=== PATIENT | male | born 1975 | race Caucasian/White ===

== ENCOUNTER 2017-09-21 17:41 | Emergency (ER) | payer MEDICAID ==
[~2017-09-21] VITALS: Ht 172.7 cm; Wt 65.9 kg
[2017-09-21 17:58] VITALS: BP 144/91
== END 2017-09-21 21:30 | disposition left against medical advice (07) ==
LOC: EMS 17:52
DX: F22 Delusional disorders (principal); F16.90 Hallucinogen use, unspecified, uncomplicated; F17.210 Nicotine dependence, cigarettes, uncomplicated; Z53.21 Procedure and treatment not carried out due to patient leaving prior to being seen by health care provider

== ENCOUNTER 2017-09-21 22:48 | Inpatient (IN) | payer MEDICAID, OTHER ==
[~2017-09-21] VITALS: Ht 170.2 cm; Wt 88.6 kg
[2017-09-21 23:56] LABS: BASOPHILS # (AUTO) 0.02 K/uL (0.00-0.20); BASOPHILS % (AUTO) 0.4 % (0.0-2.0); EOSINOPHILS # (AUTO) 0.05 K/uL (0.00-0.70); EOSINOPHILS % (AUTO) 0.66 % (1.0-6.0); HEMATOCRIT 45.8 % (41-53); HEMOGLOBIN 15.2 g/dL (13.5-17.5); LYMPHOCYTES # (AUTO) 0.7 K/uL (1.0-4.8); LYMPHOCYTES % (AUTO) 9.3 % (22.0-44.0); MEAN CORPUSCULAR HEMOGLOBIN 32.5 pg (26.0-34.0); MEAN CORPUSCULAR HGB CONC 33.2 G/dL (31.0-37.0); MEAN CORPUSCULAR VOLUME 98 fL (80-100); MONOCYTES # (AUTO) 0.4 K/uL (0.1-1.0); MONOCYTES % (AUTO) 6.1 % (2.0-9.0); NEUTROPHILS # (AUTO) 5.8 K/uL (1.8-7.7); NEUTROPHILS % (AUTO) 83.6 % (40.0-70.0); PLATELET COUNT (AUTO) 132 K/uL (150-450); RED BLOOD CELL COUNT(AUTO) 4.67 MIL/uL (4.50-5.90); RED CELL DISTRIBUTION WIDTH 13.1 % (11.5-14.5)
[2017-09-22 00:01] LABS: ANION GAP 10 mmol/L (8-16); CALCIUM, TOTAL 9.1 mg/dL (8.8-10.5); CARBON DIOXIDE 29 mmol/L (22-29); CHLORIDE 99 mmol/L (98-107); CREATININE 1.07 mg/dL (0.60-1.30); GLOMERULAR FILTR. RATE CALC > 60 mL/min (>60); POTASSIUM 3.9 mmol/L (3.5-5.1); SODIUM SERUM 138 mmol/L (136-145); UREA NITROGEN, BLOOD 14 mg/dL (7-18)
[2017-09-22 00:07] LABS: ALANINE AMINOTRANSFERASE 31 U/L (12-78); ASPARTATE AMINOTRANSFERASE 21 U/L (15-37); BILIRUBIN,TOTAL 0.3 mg/dL (0.1-1.0); TOTAL PROTEIN, SERUM 8.1 g/dL (6.4-8.2)
[2017-09-22] MEDS ORDERED: ZOLPIDEM TARTRATE 10 MG TABLET PO PRN (01:00)
[2017-09-22] MEDS ORDERED: LORazepam 2 MG TABLET PO PRN (01:00)
[2017-09-22] MEDS ORDERED: OLANZapine 5 MG RAPDIS TABLET PO PRN ×2 (01:00→14:30)
[2017-09-22 01:59] LABS: CHOL/HDL RATIO 3.4 (4.2-7.3); THYROID STIMULATING HORMONE 0.91 uIU/mL (0.36-3.74)
[2017-09-22 06:45] LABS: APPEARANCE,URINE CLEAR (CLEAR); GLUCOSE, URINE (UA) NEGATIVE (NEGATIVE); KETONES,URINE NEGATIVE (NEGATIVE); LEUKOCYTE ESTERASE ,URINE NEGATIVE (NEGATIVE); OCCULT BLOOD,URINE NEGATIVE (NEGATIVE); PH,URINE 6.5 (5.0-8.0); PROTEIN,URINE NEGATIVE (NEGATIVE)
[2017-09-22 06:46] LABS: ADD UA MICROSCOPIC NO
[2017-09-22] MEDS ORDERED: DiphenhydrAMINE HCL 50 MG/ML VIAL ONE (11:39)
[2017-09-22] MEDS ORDERED: HALOPERIDOL LACTATE 5 MG/ML VIAL ONE (11:39)
[2017-09-22] MEDS ORDERED: LORazepam 2 MG/ML VIAL ONE (11:39)
[2017-09-22] MEDS ORDERED: HALOPERIDOL LACTATE 5 MG/ML VIAL IM ONE (11:45)
[2017-09-22] MEDS ORDERED: DiphenhydrAMINE HCL 50 MG/ML VIAL IM ONE (11:45)
[2017-09-22] MEDS ORDERED: LORazepam 2 MG/ML VIAL IM ONE (11:45)
[2017-09-22] MEDS ORDERED: HydrOXYzine PAMOATE 50 MG CAPSULE PO PRN (14:30)
[2017-09-22] MEDS ORDERED: ACETAMINOPHEN 325 MG TABLET PO PRN (14:30)
[2017-09-22] MEDS ORDERED: MAGNESIUM HYDROXIDE SUSPENSION 30 ML UDCUP PO PRN (14:30)
[2017-09-22] MEDS ORDERED: GuaiFENesin/D-METHORPHAN [SUGAR-FREE] 200-20MG/10 ML SYRUP UDCUP PO PRN (14:30)
[2017-09-22] MEDS ORDERED: LOPERAMIDE HCL 2 MG CAPSULE PO PRN (14:30)
[2017-09-22] MEDS ORDERED: TUBERCULIN, PURIFIED PROTEIN DERIVATIVE 5 TU/0.1 ML SYG ID ONE (14:30)
[2017-09-22] MEDS ORDERED: PROMETHAZINE HCL 25 MG TABLET PO PRN (14:30)
[2017-09-22] MEDS ORDERED: MAG HYDROX/AL HYDROX/SIMETH ES 30 ML SUSPENSION UDCUP PO PRN (14:30)
[2017-09-22 15:18] VITALS: BP 128/56
[2017-09-22 16:00] VITALS: BP 114/70
[2017-09-22] MEDS: THIAMINE HCL 100 MG TABLET PO SCH (16:57)
[2017-09-22] MEDS ORDERED: OLANZapine 5 MG RAPDIS TABLET PO SCH (21:00)
[2017-09-23 06:49] VITALS: BP 107/65
[2017-09-23] MEDS: FOLIC ACID 1 MG TABLET PO SCH (08:51)
[2017-09-23] MEDS: THIAMINE HCL 100 MG TABLET PO SCH ×2 (08:51→16:43)
[2017-09-23] MEDS: NALTREXONE HCL 50 MG TABLET PO SCH (08:51)
[2017-09-23] MEDS: MULTIVITAMINS WITH MINERALS, THERAPEUTIC TABLET PO SCH (08:51)
[2017-09-23 10:21] VITALS: BP 107/69
[2017-09-23 16:43] VITALS: BP 105/65
[2017-09-23] MEDS ORDERED: OLAN10TA22 PO (17:58)
[2017-09-23] MEDS ORDERED: NALT50TA PO (17:58)
[2017-09-23] MEDS ORDERED: OLANZapine 10 MG RAPDIS TABLET PO SCH (21:00)
[2017-09-24 02:33] VITALS: BP 100/63
[2017-09-24 08:00] VITALS: BP 106/67
[2017-09-24] MEDS ORDERED: OLAN10TA6 PO (08:56)
[2017-09-24] MEDS ORDERED: NALT50TA6 PO (08:56)
[2017-09-24] MEDS: NALTREXONE HCL 50 MG TABLET PO SCH (09:01)
[2017-09-24] MEDS: FOLIC ACID 1 MG TABLET PO SCH (09:01)
[2017-09-24] MEDS: THIAMINE HCL 100 MG TABLET PO SCH (09:01)
[2017-09-24] MEDS: MULTIVITAMINS WITH MINERALS, THERAPEUTIC TABLET PO SCH (09:01)
[2017-09-25 06:06] LABS: HEPATITIS Bs ANTIGEN SCREEN P Negative (Negative); HEPATITIS C AB SCREEN >11.0 s/co ratio (0.0-0.9)
== END 2017-09-24 13:20 | disposition home or self-care (01) | DRG 750 ==
LOC: EMS 22:49 → B2S 09-22 11:34
PROVIDERS: ADMIT Psychiatry & Neurology Psychiatry; ATTEND Psychiatry & Neurology Psychiatry
DX: F20.0 Paranoid schizophrenia (principal); D69.6 Thrombocytopenia, unspecified; R45.851 Suicidal ideations; F10.10 Alcohol abuse, uncomplicated; Z71.41 Alcohol abuse counseling and surveillance of alcoholic; F15.10 Other stimulant abuse, uncomplicated; Z71.51 Drug abuse counseling and surveillance of drug abuser; F16.10 Hallucinogen abuse, uncomplicated; Z71.6 Tobacco abuse counseling; F17.210 Nicotine dependence, cigarettes, uncomplicated; J44.9 Chronic obstructive pulmonary disease, unspecified; Z81.8 Family history of other mental and behavioral disorders; R73.9 Hyperglycemia, unspecified; R03.0 Elevated blood-pressure reading, without diagnosis of hypertension
CPT/HCPCS: 80074; 82306; 83036; 84443; 85049; 96372; 99285; 99406; G0480; J1200; J1630; J2060

== ENCOUNTER 2018-08-17 21:31 | Emergency (ER) | payer MEDICAID, OTHER ==
[~2018-08-17] VITALS: Ht 172.7 cm; Wt 77.3 kg
[~2018-08-17 21:31] MED LIST: NALT50TA PO; NALT50TA6 PO; OLAN10TA22 PO; OLAN10TA6 PO
[2018-08-17 21:50] VITALS: BP 158/96
[2018-08-17] MEDS: IBUPROFEN 600 MG TABLET PO ONE (22:20)
[2018-08-17] MEDS: LIDOCAINE 5% TRANSDERMAL PATCH TD ONE (22:20)
[2018-08-17] MEDS: METHOCARBAMOL 500 MG TABLET PO ONE (22:20)
== END 2018-08-17 22:38 | disposition home or self-care (01) ==
LOC: EMS 21:32
DX: M54.5 Low back pain (principal); R03.0 Elevated blood-pressure reading, without diagnosis of hypertension; F17.210 Nicotine dependence, cigarettes, uncomplicated; X50.0XXA Overexertion from strenuous movement or load, initial encounter; Y93.89 Activity, other specified; Y92.89 Other specified places as the place of occurrence of the external cause; Y99.8 Other external cause status

== ENCOUNTER 2019-05-04 22:16 | Emergency (ER) | payer OTHER | END 2019-05-04 22:45 | disposition left against medical advice (07) | LOC: EMS 22:17 | DX: Z00.00 Encounter for general adult medical examination without abnormal findings (principal); Z53.21 Procedure and treatment not carried out due to patient leaving prior to being seen by health care provider ==

== ENCOUNTER 2020-02-27 14:34 | Emergency (ER) | payer OTHER ==
[~2020-02-27] VITALS: Ht 175.3 cm; Wt 81.8 kg
[2020-02-27 15:23] VITALS: BP 131/81
[2020-02-27 15:31] LABS: BASOPHILS % (AUTO) 0.4 % (0.0-2.0); EOSINOPHILS % (AUTO) 2.7 % (1.0-6.0); HEMATOCRIT 40.1 % (41-53); LYMPHOCYTES % (AUTO) 22.7 % (22.0-44.0); MEAN CORPUSCULAR HEMOGLOBIN 31.2 pg (26.0-34.0); MEAN CORPUSCULAR HGB CONC 32.5 G/dL (31.0-37.0); MEAN CORPUSCULAR VOLUME 96 fL (80-100); MONOCYTES # (AUTO) 0.7 K/uL (0.1-1.0); MONOCYTES % (AUTO) 14.7 % (2.0-9.0); NEUTROPHILS # (AUTO) 2.7 K/uL (1.8-7.7); NEUTROPHILS % (AUTO) 59.5 % (40.0-70.0); PLATELET COUNT (AUTO) 130 K/uL (150-450); RED BLOOD CELL COUNT(AUTO) 4.17 MIL/uL (4.50-5.90); RED CELL DISTRIBUTION WIDTH 13.7 % (11.5-14.5)
[2020-02-27 15:41] LABS: ANION GAP 8 mmol/L (8-16); CALCIUM, TOTAL 8.1 mg/dL (8.8-10.5); CARBON DIOXIDE 25 mmol/L (22-29); CHLORIDE 106 mmol/L (98-107); GLOMERULAR FILTR. RATE CALC > 60 mL/min (>60); GLUCOSE,RANDOM 101 mg/dL (70-110); POTASSIUM 3.5 mmol/L (3.5-5.1); SODIUM SERUM 139 mmol/L (136-145); UREA NITROGEN, BLOOD 25 mg/dL (7-18)
[2020-02-27 16:05] LABS: ALANINE AMINOTRANSFERASE 37 U/L (12-78); ALBUMIN 3.7 g/dL (3.4-5.0); ALKALINE PHOSPHATASE 63 U/L (46-116); ASPARTATE AMINOTRANSFERASE 39 U/L (15-37); BILIRUBIN,TOTAL 0.8 mg/dL (0.1-1.0); CREATINE KINASE, TOTAL ONLY 555 U/L (39-308); TOTAL PROTEIN, SERUM 7.1 g/dL (6.4-8.2)
== END 2020-02-27 16:00 | disposition left against medical advice (07) ==
LOC: EMS 14:34
DX: T50.7X1A Poisoning by analeptics and opioid receptor antagonists, accidental (unintentional), initial encounter (principal); F17.210 Nicotine dependence, cigarettes, uncomplicated; Y92.89 Other specified places as the place of occurrence of the external cause
CPT/HCPCS: 80053; 82550; 84484; 85025; 93005; 99284; G0480

== ENCOUNTER 2020-12-16 17:35 | Emergency (ER) | payer OTHER ==
[~2020-12-16] VITALS: Ht 167.6 cm; Wt 73.2 kg
[2020-12-16] MEDS ORDERED: SODIUM CHLORIDE 0.9% 1,000 ML IV ONE (17:45)
[2020-12-16 18:41] LABS: COVID AG,FIA SOURCE NASAL SWAB
[2020-12-16 18:57] LABS: BASOPHILS % (AUTO) 0.2 % (0.0-2.0); EOSINOPHILS % (AUTO) 1.1 % (1.0-6.0); HEMATOCRIT 42.2 % (41-53); HEMOGLOBIN 14.1 g/dL (13.5-17.5); LYMPHOCYTES # (AUTO) 0.6 K/uL (1.0-4.8); LYMPHOCYTES % (AUTO) 13.9 % (22.0-44.0); MEAN CORPUSCULAR HGB CONC 33.3 G/dL (31.0-37.0); MEAN CORPUSCULAR VOLUME 96 fL (80-100); MONOCYTES # (AUTO) 0.3 K/uL (0.1-1.0); MONOCYTES % (AUTO) 6.4 % (2.0-9.0); NEUTROPHILS # (AUTO) 3.2 K/uL (1.8-7.7); NEUTROPHILS % (AUTO) 78.4 % (40.0-70.0); PLATELET COUNT (AUTO) 139 K/uL (150-450); RED CELL DISTRIBUTION WIDTH 14.4 % (11.5-14.5)
[2020-12-16 19:03] LABS: ANION GAP 18 mmol/L (8-16); CALCIUM, TOTAL 8.8 mg/dL (8.8-10.5); CARBON DIOXIDE 21 mmol/L (22-29); CHLORIDE 105 mmol/L (98-107); CREATININE 1.56 mg/dL (0.60-1.30); GLOMERULAR FILTR. RATE CALC 48 mL/min (>60); GLUCOSE,RANDOM 132 mg/dL (70-110); POTASSIUM 3.4 mmol/L (3.5-5.1); SODIUM SERUM 144 mmol/L (136-145); UREA NITROGEN, BLOOD 23 mg/dL (7-18)
[2020-12-16 19:06] VITALS: BP 114/61
[2020-12-16 19:29] LABS: ALANINE AMINOTRANSFERASE 36 U/L (12-78); ALBUMIN 3.9 g/dL (3.4-5.0); ALKALINE PHOSPHATASE 70 U/L (46-116); ASPARTATE AMINOTRANSFERASE 30 U/L (15-37); BILIRUBIN,TOTAL 0.3 mg/dL (0.1-1.0); CREATINE KINASE, TOTAL ONLY 164 U/L (39-308); LIPASE 138 U/L (73-393); TOTAL PROTEIN, SERUM 7.9 g/dL (6.4-8.2)
[2020-12-16 19:41] LABS: LACTIC ACID 12.1 mmol/L (0.4-2.0)
== END 2020-12-16 19:36 | disposition home or self-care (01) ==
LOC: EMS 17:35
DX: N17.9 Acute kidney failure, unspecified (principal); E87.6 Hypokalemia; E86.0 Dehydration; R41.82 Altered mental status, unspecified; F15.10 Other stimulant abuse, uncomplicated; F17.210 Nicotine dependence, cigarettes, uncomplicated; Z20.822 Contact with and (suspected) exposure to COVID-19
CPT/HCPCS: 36415; 80053; 82550; 83605; 83690; 84484; 85025; 87426; 93005; 96360; 99291; G0480

== ENCOUNTER 2020-12-30 16:38 | Emergency (ER) | payer OTHER | END 2020-12-30 17:36 | disposition left against medical advice (07) | LOC: EMS 16:38 | DX: F15.10 Other stimulant abuse, uncomplicated (principal); F17.210 Nicotine dependence, cigarettes, uncomplicated; Z59.0 Homelessness | CPT/HCPCS: 99283 ==

== ENCOUNTER 2021-01-26 21:57 | Emergency (ER) | payer OTHER ==
[~2021-01-26] VITALS: Ht 172.7 cm; Wt 70.5 kg
[2021-01-26] MEDS ORDERED: PERTUSS(ACELL),DIPH,TET VAC/PF 0.5 ML SYRINGE IM. ONE (22:45)
[2021-01-26] MEDS ORDERED: LIDOCAINE 1% 10 ML VIAL SQ ONE (22:45)
[2021-01-27 00:13] VITALS: BP 121/66
== END 2021-01-27 00:17 | disposition home or self-care (01) ==
LOC: EMS 21:59
DX: S61.212A Laceration without foreign body of right middle finger without damage to nail, initial encounter (principal); W45.8XXA Other foreign body or object entering through skin, initial encounter; Y93.89 Activity, other specified; Y92.89 Other specified places as the place of occurrence of the external cause; Y99.8 Other external cause status
CPT/HCPCS: 12004; 73140; 90471; 90715; 99283; J3490

== ENCOUNTER 2021-02-11 23:34 | Emergency (ER) | payer OTHER ==
[~2021-02-11] VITALS: Ht 172.7 cm; Wt 78.0 kg
[2021-02-11 23:52] LABS: GLUCOSE,POINT OF CARE 126 MG/DL (70-110)
[2021-02-12 00:10] LABS: BASOPHILS % (AUTO) 0.6 % (0.0-2.0); EOSINOPHILS % (AUTO) 2.6 % (1.0-6.0); LYMPHOCYTES # (AUTO) 0.8 K/uL (1.0-4.8); LYMPHOCYTES % (AUTO) 18.7 % (22.0-44.0); MEAN CORPUSCULAR HEMOGLOBIN 31.6 pg (26.0-34.0); MEAN CORPUSCULAR HGB CONC 33.4 G/dL (31.0-37.0); MEAN CORPUSCULAR VOLUME 95 fL (80-100); MONOCYTES # (AUTO) 0.4 K/uL (0.1-1.0); MONOCYTES % (AUTO) 9.6 % (2.0-9.0); NEUTROPHILS % (AUTO) 68.5 % (40.0-70.0); PLATELET COUNT (AUTO) 136 K/uL (150-450); RED BLOOD CELL COUNT(AUTO) 4.43 MIL/uL (4.50-5.90); RED CELL DISTRIBUTION WIDTH 13.6 % (11.5-14.5)
[2021-02-12 00:13] VITALS: BP 132/76
[2021-02-12 00:26] LABS: ANION GAP 11 mmol/L (8-16); CALCIUM, TOTAL 8.3 mg/dL (8.8-10.5); CARBON DIOXIDE 26 mmol/L (22-29); CHLORIDE 103 mmol/L (98-107); CREATININE 0.96 mg/dL (0.60-1.30); GLOMERULAR FILTR. RATE CALC > 60 mL/min (>60); GLUCOSE,RANDOM 143 mg/dL (70-110); POTASSIUM 3.3 mmol/L (3.5-5.1); SODIUM SERUM 140 mmol/L (136-145); UREA NITROGEN, BLOOD 29 mg/dL (7-18)
[2021-02-12 00:28] LABS: ALANINE AMINOTRANSFERASE 38 U/L (12-78); ALBUMIN 3.9 g/dL (3.4-5.0); ALKALINE PHOSPHATASE 66 U/L (46-116); ASPARTATE AMINOTRANSFERASE 26 U/L (15-37); BILIRUBIN,TOTAL 0.3 mg/dL (0.1-1.0); TOTAL PROTEIN, SERUM 7.2 g/dL (6.4-8.2)
== END 2021-02-12 00:17 | disposition left against medical advice (07) ==
LOC: EMS 23:36
DX: R41.82 Altered mental status, unspecified (principal); F19.10 Other psychoactive substance abuse, uncomplicated; F17.210 Nicotine dependence, cigarettes, uncomplicated
CPT/HCPCS: 80053; 82962; 85025; 99284; G0480

== ENCOUNTER 2022-03-17 07:43 | Emergency (ER) | payer OTHER ==
[~2022-03-17] VITALS: Ht 170.2 cm; Wt 79.1 kg
[~2022-03-17 07:43] MED LIST changes: +OLAN10TA26 PO; -OLAN10TA6 PO
[2022-03-17 07:48] VITALS: BP 133/82
[2022-03-17] MEDS: ACETAMINOPHEN 500 MG TABLET PO ONE ×2 (08:07→08:19)
== END 2022-03-17 08:48 | disposition home or self-care (01) ==
LOC: EMS 07:43
DX: S80.02XA Contusion of left knee, initial encounter (principal); S80.01XA Contusion of right knee, initial encounter; F17.210 Nicotine dependence, cigarettes, uncomplicated; Z98.890 Other specified postprocedural states; W19.XXXA Unspecified fall, initial encounter; Y93.89 Activity, other specified; Y92.89 Other specified places as the place of occurrence of the external cause; Y99.8 Other external cause status
CPT/HCPCS: 99282; Z7502; Z7610

== ENCOUNTER 2023-02-25 11:04 | Emergency (ER) | payer OTHER ==
[~2023-02-25 11:04] MED LIST changes: +CEPH-558 PO; +DOXY-354 PO; -NALT50TA PO; -NALT50TA6 PO; -OLAN10TA22 PO; -OLAN10TA26 PO
== END 2023-02-25 12:00 | disposition left against medical advice (07) ==
LOC: EMS 11:55
DX: Z53.21 Procedure and treatment not carried out due to patient leaving prior to being seen by health care provider (principal)

== ENCOUNTER 2023-03-02 10:48 | Emergency (ER) | payer OTHER ==
[~2023-03-02] VITALS: Ht 170.2 cm; Wt 65.9 kg
[2023-03-02 13:37] VITALS: BP 100/60
== END 2023-03-02 13:57 | disposition home or self-care (01) ==
LOC: EMS 10:49
DX: S82.831A Other fracture of upper and lower end of right fibula, initial encounter for closed fracture (principal); F17.210 Nicotine dependence, cigarettes, uncomplicated; F12.90 Cannabis use, unspecified, uncomplicated; F15.90 Other stimulant use, unspecified, uncomplicated; Y93.89 Activity, other specified; Y92.89 Other specified places as the place of occurrence of the external cause; Y99.8 Other external cause status
CPT/HCPCS: 99284; 73590-TC; 73610-TC; Z7502

== ENCOUNTER 2023-04-12 14:11 | Emergency (ER) | payer OTHER ==
[~2023-04-12] VITALS: Ht 205.7 cm; Wt 79.5 kg
[2023-04-12 14:18] VITALS: BP 134/76; PULSE 105; RESP 18; TEMP 98.6
[2023-04-12] MEDS ORDERED: PERTUSS(ACELL),DIPH,TET VAC/PF 0.5 ML SYRINGE IM. ONE (18:15)
[2023-04-12] MEDS ORDERED: LIDOCAINE 1% 10 ML VIAL SQ ONE (19:00)
[2023-04-12] MEDS ORDERED: AMOX1TAB16 PO (19:26)
[2023-04-12] MEDS ORDERED: AMOX TR/POT CLAV 875 MG/125 MG TABLET PO ONE (19:30)
[2023-04-12] MEDS ORDERED: BACITRACIN 28 GM OINTMENT TP ONE (19:45)
== END 2023-04-12 19:57 | disposition home or self-care (01) ==
LOC: EMS 14:23
DX: S51.052A Open bite, left elbow, initial encounter (principal); S71.152A Open bite, left thigh, initial encounter; F17.210 Nicotine dependence, cigarettes, uncomplicated; F12.90 Cannabis use, unspecified, uncomplicated; F15.90 Other stimulant use, unspecified, uncomplicated; Z98.890 Other specified postprocedural states; W54.0XXA Bitten by dog, initial encounter; Y93.89 Activity, other specified; Y92.89 Other specified places as the place of occurrence of the external cause; Y99.8 Other external cause status
CPT/HCPCS: 99284; 12042; 73080; 90715; 90471; J3490

== ENCOUNTER 2023-07-17 01:01 | Emergency (ER) | payer OTHER ==
[~2023-07-17] VITALS: Ht 172.7 cm; Wt 77.3 kg
[~2023-07-17 01:01] MED LIST changes: +AMOX1TAB16 PO; -CEPH-558 PO; -DOXY-354 PO
[2023-07-17 02:04] VITALS: PULSE 75
[2023-07-17] MEDS ORDERED: TraMADol HCL 50 MG TABLET PO ONE (03:00)
[2023-07-17] MEDS ORDERED: ACETAMINOPHEN 500 MG TABLET PO ONE (03:00)
[2023-07-17] MEDS ORDERED: KETOROLAC TROMETHAMINE 60 MG/2 ML VIAL IM ONE (03:00)
[2023-07-17] MEDS ORDERED: IBUP-1554 PO (03:31)
[2023-07-17] MEDS ORDERED: TRAM-559 PO (03:31)
[2023-07-17 04:29] VITALS: BP 137/71; RESP 16; TEMP 97.2
== END 2023-07-17 04:30 | disposition home or self-care (01) ==
LOC: EMS 01:04
DX: S39.012A Strain of muscle, fascia and tendon of lower back, initial encounter (principal); F17.210 Nicotine dependence, cigarettes, uncomplicated; F12.90 Cannabis use, unspecified, uncomplicated; F15.90 Other stimulant use, unspecified, uncomplicated; Z98.890 Other specified postprocedural states; Z59.00 Homelessness unspecified; X58.XXXA Exposure to other specified factors, initial encounter; Y93.89 Activity, other specified; Y92.89 Other specified places as the place of occurrence of the external cause; Y99.8 Other external cause status
CPT/HCPCS: 99283; 96372; J1885

== ENCOUNTER 2023-07-19 13:55 | Emergency (ER) | payer OTHER ==
[~2023-07-19] VITALS: Ht 175.3 cm; Wt 72.7 kg
[~2023-07-19 13:55] MED LIST changes: +IBUP-1554 PO; +TRAM-559 PO
[2023-07-19 14:29] VITALS: TEMP 98.8
[2023-07-19] MEDS ORDERED: KETOROLAC TROMETHAMINE 60 MG/2 ML VIAL IM ONE (15:00)
[2023-07-19] MEDS ORDERED: CYCLOBENZAPRINE HCL 10 MG TABLET PO ONE (15:00)
[2023-07-19] MEDS ORDERED: ACETAMINOPHEN 500 MG TABLET PO ONE (15:00)
[2023-07-19 15:45] VITALS: BP 124/81; PULSE 88; RESP 18
[2023-07-19] MEDS ORDERED: IBUP-1554 PO (15:50)
[2023-07-19] MEDS ORDERED: ACET-66 PO (15:50)
== END 2023-07-19 16:12 | disposition home or self-care (01) ==
LOC: MERGE 14:27 → EMS 14:27
DX: S39.012A Strain of muscle, fascia and tendon of lower back, initial encounter (principal); S70.02XA Contusion of left hip, initial encounter; S70.12XA Contusion of left thigh, initial encounter; F17.210 Nicotine dependence, cigarettes, uncomplicated; F15.90 Other stimulant use, unspecified, uncomplicated; X58.XXXA Exposure to other specified factors, initial encounter; Y93.89 Activity, other specified; Y92.89 Other specified places as the place of occurrence of the external cause; Y99.8 Other external cause status
CPT/HCPCS: 99283; 72170; 96372; J1885

== ENCOUNTER 2023-09-20 15:47 | Emergency (ER) | payer OTHER ==
[~2023-09-20] VITALS: Ht 170.2 cm; Wt 70.0 kg
[~2023-09-20 15:47] MED LIST changes: +ACET-66 PO
[2023-09-20 16:35] LABS: BASOPHILS % (AUTO) 0.5 % (0.0-2.0); EOSINOPHILS % (AUTO) 1.9 % (1.0-6.0); HEMATOCRIT 38.1 % (41-53); HEMOGLOBIN 12.9 g/dL (13.5-17.5); LYMPHOCYTES # (AUTO) 0.7 K/uL (1.0-4.8); LYMPHOCYTES % (AUTO) 15.5 % (22.0-44.0); MEAN CORPUSCULAR HEMOGLOBIN 32.3 pg (26.0-34.0); MEAN CORPUSCULAR HGB CONC 33.9 G/dL (31.0-37.0); MEAN CORPUSCULAR VOLUME 96 fL (80-100); MONOCYTES # (AUTO) 0.4 K/uL (0.1-1.0); MONOCYTES % (AUTO) 9.7 % (2.0-9.0); NEUTROPHILS # (AUTO) 3.4 K/uL (1.8-7.7); NEUTROPHILS % (AUTO) 72.4 % (40.0-70.0); PLATELET COUNT (AUTO) 177 K/uL (150-450); RED BLOOD CELL COUNT(AUTO) 3.99 MIL/uL (4.50-5.90); RED CELL DISTRIBUTION WIDTH 14.1 % (11.5-14.5); WHITE BLOOD COUNT (AUTO) 4.7 K/uL (4.5-11.0)
[2023-09-20 16:45] LABS: ANION GAP 7 mmol/L (8-16); CALCIUM, TOTAL 7.7 mg/dL (8.8-10.5); CARBON DIOXIDE 27 mmol/L (22-29); CHLORIDE 104 mmol/L (98-107); CREATININE 0.67 mg/dL (0.60-1.30); GLOMERULAR FILTR. RATE CALC > 60 mL/min (>60); GLUCOSE,RANDOM 123 mg/dL (70-110); POTASSIUM 3.8 mmol/L (3.5-5.1); SODIUM SERUM 138 mmol/L (136-145); UREA NITROGEN, BLOOD 19 mg/dL (7-18)
[2023-09-20 16:49] LABS: INR 1.1 (0.9-1.1); PROTHROMBIN TIME 11.1 SEC (9.4-11.6)
[2023-09-20 16:51] LABS: ALANINE AMINOTRANSFERASE 43 U/L (12-78); ALBUMIN 3.2 g/dL (3.4-5.0); ALKALINE PHOSPHATASE 92 U/L (46-116); ASPARTATE AMINOTRANSFERASE 39 U/L (15-37); BILIRUBIN,TOTAL 0.3 mg/dL (0.1-1.0); TOTAL PROTEIN, SERUM 7.1 g/dL (6.4-8.2)
[2023-09-20 16:52] LABS: AMMONIA 12 umol/L (11-32); TROPONIN I-HIGH SENSITIVITY 8 ng/L (<76)
[2023-09-20 16:55] LABS: LACTIC ACID 0.9 mmol/L (0.4-2.0)
[2023-09-20 17:04] LABS: ALCOHOL, BLOOD (SERUM) < 3 mg/dL (0-10)
[2023-09-20 21:49] LABS: APPEARANCE,URINE CLEAR (CLEAR); BILIRUBIN,URINE NEGATIVE (NEGATIVE); COLOR,URINE YELLOW (YELLOW); GLUCOSE, URINE (UA) 150-200 mg/dL (NEGATIVE); KETONES,URINE NEGATIVE (NEGATIVE); LEUKOCYTE ESTERASE ,URINE NEGATIVE (NEGATIVE); NITRATE,URINE NEGATIVE (NEGATIVE); OCCULT BLOOD,URINE NEGATIVE (NEGATIVE); PH,URINE 5.5 (5.0-8.0); PH,URINE DRUG SCREEN 5.5 (5.0-8.0); PROTEIN,URINE TRACE mg/dL (NEGATIVE); SPECIFIC GRAVITIY, URINE 1.033 (1.003-1.030); UROBILINOGEN,URINE <=1.0 mg/dL (<=1.0)
[2023-09-20 21:56] LABS: ALCOHOL, URINE DRUG SCREEN NEGATIVE (NEGATIVE); AMPHET/METH SCREEN,URINE POSITIVE (NEGATIVE); BARBITURATE SCREEN, URINE NEGATIVE (NEGATIVE); BENZODIAZEPINES SCREEN,URINE NEGATIVE (NEGATIVE); CANNABINOID SCREEN,URINE POSITIVE (NEGATIVE); COCAINE SCREEN,URINE NEGATIVE (NEGATIVE); METHADONE SCREEN, URINE NEGATIVE (NEGATIVE); OPIATE SCREEN,URINE NEGATIVE (NEGATIVE); PHENCYCLIDINE SCREEN,URINE POSITIVE (NEGATIVE)
[2023-09-20 22:15] LABS: BACTERIA,URINE None Seen /HPF (None Seen); RBC,URINE None Seen /HPF (0-2); SQUAMOUS EPITHELIAL CELL,UR None Seen /LPF (None Seen); WBC,URINE None Seen /HPF (0-5)
[2023-09-20 22:21] VITALS: TEMP 98
[2023-09-20 22:25] VITALS: BP 153/87; PULSE 87; RESP 16
== END 2023-09-20 22:51 | disposition home or self-care (01) ==
LOC: EMS 15:49
DX: T40.411A Poisoning by fentanyl or fentanyl analogs, accidental (unintentional), initial encounter (principal); F15.10 Other stimulant abuse, uncomplicated; F12.90 Cannabis use, unspecified, uncomplicated; R56.9 Unspecified convulsions; F17.210 Nicotine dependence, cigarettes, uncomplicated; Y92.89 Other specified places as the place of occurrence of the external cause
CPT/HCPCS: 99285; 70450; 71045; 80053; 81001; 82140; 83605; 84484; 85025; 85610; 85730; 36415; 93005; 80307; G0480

== ENCOUNTER 2023-10-07 04:03 | Emergency (ER) | payer OTHER ==
[~2023-10-07] VITALS: Ht 172.7 cm; Wt 91.0 kg
[2023-10-07 04:09] VITALS: BP 119/77; PULSE 93; RESP 19; TEMP 97.9
[2023-10-07] MEDS ORDERED: ACETAMINOPHEN 500 MG TABLET PO ONE (04:15)
[2023-10-07] MEDS ORDERED: LIDOCAINE 5% TRANSDERMAL PATCH TD ONE (04:15)
[2023-10-07] MEDS ORDERED: IBUPROFEN 600 MG TABLET PO ONE (04:15)
[2023-10-07] MEDS ORDERED: ACET-3385 PO (04:46)
[2023-10-07] MEDS ORDERED: IBUP-1492 PO (04:46)
== END 2023-10-07 08:08 | disposition home or self-care (01) ==
LOC: EMS 04:04
DX: S20.212A Contusion of left front wall of thorax, initial encounter (principal); F17.210 Nicotine dependence, cigarettes, uncomplicated; F15.90 Other stimulant use, unspecified, uncomplicated; W22.8XXA Striking against or struck by other objects, initial encounter; Y93.I9 Activity, other involving external motion; Y92.89 Other specified places as the place of occurrence of the external cause; Y99.8 Other external cause status
CPT/HCPCS: 71101; 99284; Z7502; Z7610

== ENCOUNTER 2024-07-18 04:55 | Emergency (ER) | payer OTHER ==
[~2024-07-18] VITALS: Ht 177.8 cm; Wt 75.0 kg
[~2024-07-18 04:55] MED LIST changes: +ACET-3385 PO; +AMOX-457 PO; -AMOX1TAB16 PO; +IBUP-1492 PO; -TRAM-559 PO; +TRAM50TA5 PO
[2024-07-18 05:45] VITALS: TEMP 98.1
[2024-07-18] MEDS ORDERED: LORazepam 1 MG TABLET PO ONE (06:15)
[2024-07-18] MEDS: LORazepam 0.5 MG TABLET PO ONE (06:22)
[2024-07-18 07:24] VITALS: BP 140/91; PULSE 72; RESP 16; O2SAT 99
== END 2024-07-18 07:41 | disposition home or self-care (01) ==
LOC: EMS 04:56
DX: F15.10 Other stimulant abuse, uncomplicated (principal); F41.9 Anxiety disorder, unspecified
CPT/HCPCS: 99283

== ENCOUNTER 2024-07-20 07:09 | Emergency (ER) | payer OTHER ==
[~2024-07-20] VITALS: Ht 175.3 cm; Wt 79.1 kg
[2024-07-20 07:19] VITALS: TEMP 96.9
[2024-07-20 17:14] VITALS: BP 144/72; PULSE 65; RESP 17; O2SAT 98
== END 2024-07-20 17:59 | disposition home or self-care (01) ==
LOC: EMS 07:11
DX: S02.92XA Unspecified fracture of facial bones, initial encounter for closed fracture (principal); F15.90 Other stimulant use, unspecified, uncomplicated; Y08.89XA Assault by other specified means, initial encounter; Y93.89 Activity, other specified; Y92.89 Other specified places as the place of occurrence of the external cause; Y99.8 Other external cause status
CPT/HCPCS: 70450; 71045; 71250; 72125; 72131; 72192; 74150; 99285

== ENCOUNTER 2024-07-24 01:05 | Emergency (ER) | payer OTHER ==
[~2024-07-24] VITALS: Ht 175.3 cm; Wt 77.3 kg
[2024-07-24 01:17] VITALS: TEMP 98.1
[2024-07-24 01:59] VITALS: BP 132/84; PULSE 109; RESP 16; O2SAT 99
[2024-07-24] MEDS: TraMADol HCL 50 MG TABLET PO ONE (02:15)
[2024-07-24 03:08] LABS: ALCOHOL, URINE DRUG SCREEN NEGATIVE (NEGATIVE); AMPHET/METH SCREEN,URINE POSITIVE (NEGATIVE); BARBITURATE SCREEN, URINE NEGATIVE (NEGATIVE); BENZODIAZEPINES SCREEN,URINE NEGATIVE (NEGATIVE); CANNABINOID SCREEN,URINE NEGATIVE (NEGATIVE); COCAINE SCREEN,URINE NEGATIVE (NEGATIVE); METHADONE SCREEN, URINE NEGATIVE (NEGATIVE); OPIATE SCREEN,URINE NEGATIVE (NEGATIVE); PHENCYCLIDINE SCREEN,URINE POSITIVE (NEGATIVE)
[2024-07-24 03:09] LABS: APPEARANCE,URINE CLEAR (CLEAR); BILIRUBIN,URINE NEGATIVE (NEGATIVE); COLOR,URINE YELLOW (YELLOW); GLUCOSE, URINE (UA) NEGATIVE (NEGATIVE); KETONES,URINE NEGATIVE (NEGATIVE); LEUKOCYTE ESTERASE ,URINE NEGATIVE (NEGATIVE); NITRATE,URINE NEGATIVE (NEGATIVE); OCCULT BLOOD,URINE NEGATIVE (NEGATIVE); PH,URINE 5.5 (5.0-8.0); PH,URINE DRUG SCREEN 5.5 (5.0-8.0); SPECIFIC GRAVITIY, URINE 1.029 (1.003-1.030); UROBILINOGEN,URINE <=1.0 mg/dL (<=1.0)
[2024-07-24 03:10] LABS: PROTEIN,URINE NEGATIVE (NEGATIVE)
== END 2024-07-24 03:09 | disposition home or self-care (01) ==
LOC: EMS 01:05
DX: M54.50 Low back pain, unspecified (principal); R10.84 Generalized abdominal pain; F15.90 Other stimulant use, unspecified, uncomplicated
CPT/HCPCS: 80307; 81003; 99283

== ENCOUNTER 2024-08-09 04:56 | Emergency (ER) | payer OTHER ==
[~2024-08-09] VITALS: Ht 175.3 cm; Wt 72.0 kg
[2024-08-09 05:02] VITALS: BP 116/85; PULSE 91; RESP 18; TEMP 98.8; O2SAT 97
[2024-08-09 05:41] LABS: BASOPHILS % (AUTO) 0.2 % (0.0-2.0); EOSINOPHILS % (AUTO) 2.4 % (1.0-6.0); HEMATOCRIT 42.2 % (41-53); HEMOGLOBIN 14.2 g/dL (13.5-17.5); LYMPHOCYTES # (AUTO) 1.1 K/uL (1.0-4.8); LYMPHOCYTES % (AUTO) 22.8 % (22.0-44.0); MEAN CORPUSCULAR HEMOGLOBIN 32.1 pg (26.0-34.0); MEAN CORPUSCULAR HGB CONC 33.7 G/dL (31.0-37.0); MEAN CORPUSCULAR VOLUME 95 fL (80-100); MONOCYTES # (AUTO) 0.5 K/uL (0.1-1.0); MONOCYTES % (AUTO) 10.6 % (2.0-9.0); NEUTROPHILS # (AUTO) 3.1 K/uL (1.8-7.7); PLATELET COUNT (AUTO) 181 K/uL (150-450); RED BLOOD CELL COUNT(AUTO) 4.43 MIL/uL (4.50-5.90); RED CELL DISTRIBUTION WIDTH 13.9 % (11.5-14.5); WHITE BLOOD COUNT (AUTO) 4.9 K/uL (4.5-11.0)
[2024-08-09 05:45] LABS: ANION GAP 3 mmol/L (8-16); CALCIUM, TOTAL 8.4 mg/dL (8.8-10.5); CARBON DIOXIDE 32 mmol/L (22-29); CHLORIDE 104 mmol/L (98-107); GLOMERULAR FILTR. RATE CALC > 60 mL/min (>60); GLUCOSE,RANDOM 111 mg/dL (70-110); SODIUM SERUM 139 mmol/L (136-145); UREA NITROGEN, BLOOD 20 mg/dL (7-18)
[2024-08-09 05:56] LABS: ALCOHOL, BLOOD (SERUM) < 3 mg/dL (0-10)
== END 2024-08-09 07:41 | disposition left against medical advice (07) ==
LOC: EMS 04:57
DX: F41.9 Anxiety disorder, unspecified (principal); F15.10 Other stimulant abuse, uncomplicated
CPT/HCPCS: 99283; 80048; 85025; 36415; G0480

== ENCOUNTER 2024-10-16 03:06 | Emergency (ER) | payer OTHER ==
[~2024-10-16] VITALS: Ht 175.3 cm; Wt 75.0 kg
[2024-10-16 03:28] VITALS: TEMP 98
[2024-10-16] MEDS: PERTUSS(ACELL),DIPH,TET/PF 0.5 ML SYRINGE [ADULT] IM. ONE (05:04)
[2024-10-16] MEDS: BACITRACIN 28 GM OINTMENT TP ONE (05:04)
[2024-10-16] MEDS ORDERED: CEPH-558 PO (05:05)
[2024-10-16 06:27] VITALS: BP 124/86; PULSE 79; RESP 16; O2SAT 98
== END 2024-10-16 06:29 | disposition home or self-care (01) ==
LOC: EMS 03:08
DX: T24.102A Burn of first degree of unspecified site of left lower limb, except ankle and foot, initial encounter (principal); T31.0 Burns involving less than 10% of body surface; F15.90 Other stimulant use, unspecified, uncomplicated
CPT/HCPCS: 16000; 90471; 90715; 99283

== ENCOUNTER 2024-10-21 18:20 | Emergency (ER) | payer OTHER ==
[~2024-10-21 18:20] MED LIST changes: -ACET-3385 PO; -ACET-66 PO; -AMOX-457 PO; +CEPH-558 PO; -IBUP-1492 PO; -IBUP-1554 PO; -TRAM50TA5 PO
== END 2024-10-21 18:57 | disposition left against medical advice (07) ==
LOC: EMS 18:20
DX: Z53.21 Procedure and treatment not carried out due to patient leaving prior to being seen by health care provider (principal)

== ENCOUNTER 2024-10-26 05:03 | Emergency (ER) | payer OTHER ==
[~2024-10-26] VITALS: Ht 172.7 cm; Wt 79.1 kg
[2024-10-26 05:47] VITALS: BP 156/117; PULSE 83; RESP 18; TEMP 97.8; O2SAT 99
[2024-10-26] MEDS ORDERED: BACITRACIN 28 GM OINTMENT TP ONE (06:37)
[2024-10-26] MEDS: BACITRACIN 28 GM OINTMENT TP ONE (07:11)
== END 2024-10-26 07:34 | disposition home or self-care (01) ==
LOC: EMS 05:05
DX: T23.221A Burn of second degree of single right finger (nail) except thumb, initial encounter (principal); T25.212A Burn of second degree of left ankle, initial encounter; X08.8XXA Exposure to other specified smoke, fire and flames, initial encounter; Y93.89 Activity, other specified; Y92.89 Other specified places as the place of occurrence of the external cause; Y99.8 Other external cause status
CPT/HCPCS: 16020; 99282; Z7502; Z7610

== ENCOUNTER 2024-11-11 04:24 | Emergency (ER) | payer OTHER ==
[~2024-11-11] VITALS: Ht 175.3 cm; Wt 79.0 kg
[2024-11-11 04:39] VITALS: BP 138/78; PULSE 83; RESP 16; TEMP 97.9; O2SAT 100
[2024-11-11] MEDS ORDERED: DOXY-354 PO (06:28)
[2024-11-11] MEDS: DOXYCYCLINE HYCLATE 100 MG TABLET PO ONE (06:52)
== END 2024-11-11 07:06 | disposition home or self-care (01) ==
LOC: EMS 04:25
DX: T24.202A Burn of second degree of unspecified site of left lower limb, except ankle and foot, initial encounter (principal); T31.0 Burns involving less than 10% of body surface; Z71.6 Tobacco abuse counseling
CPT/HCPCS: 16000; 99283

== ENCOUNTER 2024-11-23 18:20 | Emergency (ER) | payer OTHER ==
[~2024-11-23] VITALS: Ht 170.2 cm; Wt 81.8 kg
[~2024-11-23 18:20] MED LIST changes: +DOXY-354 PO
[2024-11-23 18:30] VITALS: BP 158/78; PULSE 96; RESP 18; TEMP 98; O2SAT 99
[2024-11-23] MEDS ORDERED: ACET-3385 PO (20:32)
[2024-11-23] MEDS: BACITRACIN 28 GM OINTMENT TP ONE (21:14)
[2024-11-23] MEDS: ACETAMINOPHEN 500 MG TABLET PO ONE (21:14)
== END 2024-11-23 21:28 | disposition home or self-care (01) ==
LOC: EMS 18:20
DX: S81.802A Unspecified open wound, left lower leg, initial encounter (principal); M25.561 Pain in right knee; Z59.00 Homelessness unspecified; X58.XXXA Exposure to other specified factors, initial encounter; Y93.89 Activity, other specified; Y92.89 Other specified places as the place of occurrence of the external cause; Y99.8 Other external cause status
CPT/HCPCS: 99283

== ENCOUNTER 2025-01-09 16:42 | Emergency (ER) | payer OTHER ==
[~2025-01-09] VITALS: Ht 172.7 cm; Wt 72.7 kg
[~2025-01-09 16:42] MED LIST changes: +ACET-3385 PO
[2025-01-09 16:51] VITALS: TEMP 97.7
[2025-01-09 17:05] VITALS: BP 112/79; PULSE 98; RESP 18; O2SAT 100
[2025-01-09] MEDS: KETOROLAC TROMETHAMINE 30 MG/ML VIAL IM ONE (17:40)
== END 2025-01-09 18:14 | disposition left against medical advice (07) ==
LOC: EMS 16:52
DX: M79.671 Pain in right foot (principal); F15.10 Other stimulant abuse, uncomplicated
CPT/HCPCS: 99283; 96372; J1885

== ENCOUNTER 2025-02-09 17:06 | Emergency (ER) | payer OTHER ==
[~2025-02-09] VITALS: Ht 172.7 cm; Wt 68.2 kg
[2025-02-09 17:24] VITALS: BP 134/76; PULSE 88; RESP 16; TEMP 98.3; O2SAT 98
[2025-02-09] MEDS: FLUORESCEIN SODIUM 1 MG STRIP OU ONE (17:31)
[2025-02-09] MEDS: PROPARACAINE HCL 0.5% 15 ML OPHTHALMIC SOLUTION OU ONE (17:31)
[2025-02-09 17:45] LABS: BASOPHILS % (AUTO) 0.4 % (0.0-2.0); EOSINOPHILS % (AUTO) 2.1 % (1.0-6.0); HEMATOCRIT 43.7 % (41-53); HEMOGLOBIN 14.6 g/dL (13.5-17.5); LYMPHOCYTES # (AUTO) 0.8 K/uL (1.0-4.8); LYMPHOCYTES % (AUTO) 15.5 % (22.0-44.0); MEAN CORPUSCULAR HGB CONC 33.4 G/dL (31.0-37.0); MEAN CORPUSCULAR VOLUME 93 fL (80-100); MONOCYTES # (AUTO) 0.4 K/uL (0.1-1.0); MONOCYTES % (AUTO) 8.3 % (2.0-9.0); NEUTROPHILS # (AUTO) 3.8 K/uL (1.8-7.7); NEUTROPHILS % (AUTO) 73.7 % (40.0-70.0); PLATELET COUNT (AUTO) 181 K/uL (150-450); RED BLOOD CELL COUNT(AUTO) 4.72 MIL/uL (4.50-5.90); WHITE BLOOD COUNT (AUTO) 5.1 K/uL (4.5-11.0)
[2025-02-09 17:50] LABS: ANION GAP 10 mmol/L (8-16); CALCIUM, TOTAL 8.9 mg/dL (8.8-10.5); CARBON DIOXIDE 28 mmol/L (22-29); CHLORIDE 104 mmol/L (98-107); CREATININE 0.73 mg/dL (0.60-1.30); GLOMERULAR FILTR. RATE CALC > 60 mL/min (>60); GLUCOSE,RANDOM 149 mg/dL (70-110); POTASSIUM 4.1 mmol/L (3.5-5.1); SODIUM SERUM 142 mmol/L (136-145); UREA NITROGEN, BLOOD 16 mg/dL (7-18)
[2025-02-09 18:04] LABS: ALCOHOL, BLOOD (SERUM) < 3 mg/dL (0-10)
[2025-02-09] MEDS: OFLOXACIN 0.3% 5 ML OPHTHALMIC SOLUTION OU ONE (18:26)
== END 2025-02-09 18:49 ==
LOC: EMS 17:07
DX: S05.02XA Injury of conjunctiva and corneal abrasion without foreign body, left eye, initial encounter (principal); S05.01XA Injury of conjunctiva and corneal abrasion without foreign body, right eye, initial encounter; T65.891A Toxic effect of other specified substances, accidental (unintentional), initial encounter; Y92.89 Other specified places as the place of occurrence of the external cause; X58.XXXA Exposure to other specified factors, initial encounter; Y93.89 Activity, other specified; Y99.8 Other external cause status
CPT/HCPCS: 99283; 80048; 85025; 36415; G0480